=== PATIENT | female | born 1950 | race Caucasian/White ===

== ENCOUNTER → 2021-02-28 | Outpatient (CLI) | payer OTHER, MEDICARE ==
[~2021-02-28] MED LIST: ALLEGRA ALLERG180 MG PO; ALPHAGAN P5 ML OPHTHALMIC; CALCIUM500 MG PO; DIPENTUM 250MG250 MG PO; LUMIGAN5 ML OPHTHALMIC; PROTONIX40 M2 PO; TIMOLOL MALEATE5 M2 OPHTHALMIC
== END ==
LOC: LAB 07:47
PROVIDERS: Specialist; ATTEND Student in an Organized Health Care Education/Training Program
DX: Z01.812 Encounter for preprocedural laboratory examination (principal); Z20.822 Contact with and (suspected) exposure to COVID-19

== ENCOUNTER → 2021-03-02 | Outpatient (CLI) | payer OTHER, MEDICARE ==
[~2021-03-02] VITALS: Ht 165.1 cm; Wt 59.9 kg
--- NOTE | 2021-03-02 13:55 | P ---
[facility] [place] [address] PROCEDURE REPORT Name: LORNA FRITZ Room #: REG [facility]..#: [id number] Admission: 03/02/21 Attend Phys: Salazar Clinton Discharge: Date of : 52 Report #: [id number] THIS REPORT FOR: cc: Jill Brian MD,Salazar Grijalva MD, MD ~ DOC #: [id number] cc: Jill Oshea MD DATE OF SERVICE: 03/02/2021 PROCEDURE PERFORMED: Upper endoscopy with esophageal dilation. HISTORY OF PRESENT ILLNESS: The patient is a 70-year-old female with a history of gastroesophageal reflux disease, currently on Protonix on a daily basis over the last few months. In the past, she was taking this more on a p.r.n. basis. She does report some mild dysphagia at times. In general, PPI therapy controlled her heartburn quite well. Plan is for EGD. She is also scheduled for colonoscopy today. She has a history of ulcerative colitis. DESCRIPTION OF PROCEDURE: The risks and benefits of the procedure were explained to the patient, those risks including but not limited to bleeding, perforation and the risk of sedation. She understood these risks and gave informed consent. Sedation was given using propofol per anesthesia. Next, using a standard Olympus upper endoscope, the scope was placed in the patient's mouth and advanced under direct vision through the esophagus, stomach and into the second portion of the duodenum. The larynx was normal in appearance. In the upper esophagus, a single inlet patch was noted, otherwise normal. The mid and distal esophagus was normal. The GE junction was normal. No evidence of stricture, no evidence of Pacheco's esophagus. Upon entering the stomach, a tiny hiatal hernia was noted. Overall, the gastric mucosa was normal. The pylorus was normal and patent. The duodenal bulb, first and second portion were all normal. The scope was then brought back up into the patient's stomach and a Savary guidewire was inserted through the scope, leaving the guidewire in place as the scope was then withdrawn. Next, a 48-Chinese Savary dilation of the esophagus was then performed without difficulty. The wire and dilator removed. The scope was reintroduced into the patient's stomach. There was no evidence of mucosal tear after dilation. The scope was then withdrawn and the procedure terminated. The patient tolerated the procedure well. IMPRESSION: 1. Small inlet patch. 2. Tiny hiatal hernia. 3. Otherwise, normal upper endoscopy. [address] [address] PROCEDURE REPORT Name: LORNA FRITZ Room #: REG [facility] Justice#: [id number] Admission: 03/02/21 Attend Phys: Salazar Clinton Discharge: Date of : 52 Report #: [id number] RECOMMENDATIONS: 1. Continue PPI therapy. 2. Observe the patient post-dilation. 3. We will proceed with colonoscopy next today. Thank you for allowing me to participate in her care. Salazar Oshea MD [facility] <ELECTRONICALLY SIGNED> By: Salazar Oshea MD 03/02/21 1355 0749 0801 Salazar Oshea MD /nt
--- NOTE | 2021-03-02 13:55 | P ---
[facility] [place] [address] PROCEDURE REPORT Name: LORNA FRITZ Room #: REG [facility].#: [id number] Admission: 03/02/21 Attend Phys: Salazar Clinton Discharge: Date of : 52 Report #: [id number] THIS REPORT FOR: cc: Jill Brian MD, Rita MD McElhinney, Christian C. MD ~ DOC #: [id number] cc: MD Salazar Whitaker MD DATE OF SERVICE: 03/02/2021 PROCEDURE PERFORMED: Colonoscopy with biopsies. HISTORY OF PRESENT ILLNESS: The patient is a 70-year-old female with a long history of ulcerative colitis, currently taking Dipentum 250 mg 2 capsules b.i.d. In general, this controls her symptoms quite well. When she has a flare, she uses Rowasa enemas and sometimes Flagyl. She did have somewhat of a flare recently with some mucus in her stools and a small amount of blood. This is improved. She has been on enemas for the last several weeks. No family history of colon cancer. Her last colonoscopy was 3 years ago. No evidence of active inflammation, both endoscopically and on biopsies at that time. Plan is for colonoscopy. DESCRIPTION OF PROCEDURE: The risks and benefits of the procedure were explained to the patient, those risks including but not limited to bleeding, perforation and the risk of sedation. She understood these risks and gave informed consent. Sedation was given using propofol per anesthesia. Next, a digital rectal exam was initially performed, which was normal. Next, using a standard Olympus colonoscope, the scope was placed in the patient's anus and advanced under direct vision to the cecum. The overall prep was excellent. The cecum and ileocecal valve were normal in appearance. Terminal ileum was intubated and normal in appearance. Ascending, transverse, descending and sigmoid colon were all normal. The upper mid rectal mucosa was normal. In the distal rectum, a single 4 mm sessile polyp was noted and removed with cold forceps. Random biopsies were also obtained today in each segment of the colon. On retroflexion, no abnormalities were noted. The scope was then withdrawn and the procedure terminated. The patient tolerated the procedure well. IMPRESSION: 1. Small rectal polyp. 2. Otherwise, normal colonoscopy. RECOMMENDATIONS: 1. Await biopsy results. 2. Continue current regimen. We will discuss further with the patient on [address] [address] PROCEDURE REPORT Name: LORNA FRITZ [id number] Admission: 03/02/21 Attend Phys: Salazar Clinton Discharge: Date of : 52 Report #: [id number] treatment options. 3. Repeat colonoscopy in 3 years. Thank you for allowing me to participate in her care. Salazar Oshea MD [facility] <ELECTRONICALLY SIGNED> By: Salazar Oshea MD 03/02/21 1355 0827 0845 Salazar Oshea MD /nt
--- NOTE | 2021-03-05 18:06 | PATH ---
[facility] [address] [place] [address] PATHOLOGY RPT PROCEDURE Name: SHELL FRITZ Room #: REG [facility] M.R.#: [id number] Admission: 03/02/21 Date of : 52 Discharge: Report #: [id number] Path Case #: [id number] [facility] Accession Number: [id number] . 01 Material submitted: . PART A: colon - ASCENDING COLON BIOPSY. Modifiers: ascending PART B: colon - TRANSVERSE COLON BIOPSY. Modifiers: transverse PART C: colon - DESCENDING COLON BIOPSY. Modifiers: descending PART D: sigmoid colon - SIGMOID COLON BIOPSY PART E: rectum - RECTAL COLON BIOPSY PART F: rectum - RECTAL POLYP BIOPSY . 01 Clinical history: . DTS/EGD AND COLONOSCOPY/ULCERATIVE COLITIS DYSPHAGIA . 02 Diagnosis: A. Large intestine mucosa, ascending colon, endoscopic biopsy: - Mild chronic active colitis, history of ulcerative colitis. - Negative for dysplasia or malignancy. . B. Large intestine mucosa, transverse colon, endoscopic biopsy: - Quiescent colitis, history of ulcerative colitis. - Negative for dysplasia or malignancy. . C. Large intestine mucosa, descending colon, endoscopic biopsy: - Quiescent colitis, history of ulcerative colitis. - Negative for dysplasia or malignancy. . D. Large intestine mucosa, sigmoid colon, endoscopic biopsy: - Quiescent colitis, history of ulcerative colitis. - Negative for dysplasia or malignancy. . E. Large intestine mucosa, rectal colon, endoscopic biopsy: - Mild chronic active colitis with marked reactive hyperplastic changes, history of ulcerative colitis. - Negative for dysplasia or malignancy. . F. Large intestine mucosa, rectal polyp, endoscopic biopsy: - Mild chronic active colitis with marked reactive hyperplastic changes, history of ulcerative colitis. - Negative for dysplasia or malignancy. (IUV/db; 03/05/2021) LBQ 03/05/2021 1410 Local . 02 Electronically signed: . Irene Johnson MD, [place] [address] PATHOLOGY RPT PROCEDURE Name: SHELL FRITZ HARITHA [facility] [id number] Admission: 03/02/21 Date of : 52 Discharge: Report #: [id number] Path Case #: [id number] NPI- [id number] . 01 Gross description: . A. Received in formalin labeled "Shell Fritz, ascending colon BX" are multiple fragments of drummond-brown soft tissue measuring in aggregate 1.0 x 0.8 x 0.1 cm. The specimen is submitted entirely in A1. . B. Received in formalin labeled "Shell Firtz, transverse colon BX" are multiple fragments of drummond-brown soft tissue measuring in aggregate 1.2 x 0.3 x 0.1 cm. The specimen is submitted entirely in B1. . C. Received in formalin labeled "Shell Fritz, descending colon BX" are multiple fragments of drummond-brown soft tissue measuring in aggregate 1.3 x 0.5 x 0.1 cm. The specimen is submitted entirely in C1. . D. Received in formalin labeled "Shell Fritz, sigmoid colon BX" are multiple fragments of drummond-brown soft tissue measuring in aggregate 0.7 x 0.5 x 0.1 cm. The specimen is submitted entirely in D1. . E. Received in formalin labeled "Shell Fritz, rectal colon BX" are multiple fragments of drummond-brown soft tissue measuring in aggregate 0.7 x 0.5 x 0.1 cm. The specimen is submitted entirely in E1. . F. Received in formalin labeled "Shell Fritz, rectal polyp" are 2 fragments of drummond-brown soft tissue measuring in aggregate 0.5 x 0.5 x 0.1 cm. The specimen is submitted entirely in F1. ([facility]; 03/03/2021) [facility] 03/03/2021 1406 Local . 02 Pathologist provided ICD-10: K52.9, Z12.11, R13.10 . 02 CPT . 326053, 390583, 816029, 874619, 215407, [id number] Specimen Comment: A courtesy copy of this report has been sent to [phone] Specimen Comment: Report sent to Performed at: 01 [facility] [address], [place], [place] [id number] MD Ovidio Alvarez MD Phone: [phone] Performed at: [address] [facility] [id number] MD Irene Johnson MD Phone: [phone]
== END | disposition home or self-care (01) ==
LOC: GI
PROVIDERS: ATTEND Specialist
DX: K52.9 Noninfective gastroenteritis and colitis, unspecified (principal); K62.1 Rectal polyp; R13.10 Dysphagia, unspecified; K21.9 Gastro-esophageal reflux disease without esophagitis; K92.1 Melena; K44.9 Diaphragmatic hernia without obstruction or gangrene; Z98.890 Other specified postprocedural states; Z79.899 Other long term (current) drug therapy; Z85.828 Personal history of other malignant neoplasm of skin; Z88.8 Allergy status to other drugs, medicaments and biological substances
CPT/HCPCS: 62110; 62900